=== PATIENT | female | born 1995 | race Caucasian/White ===

== ENCOUNTER 2017-11-23 07:17 | Inpatient (IN) | payer OTHER ==
[~2017-11-23] VITALS: Ht 157.5 cm; Wt 54.4 kg
== END 2017-11-25 13:21 | disposition home or self-care (01) | DRG 774 ==
LOC: LDR 07:17 → OB/GYN 19:26
PROC: 10E0XZZ Delivery of Products of Conception, External Approach (ICD-10-PCS; principal; 2017-11-23)
PROC: 0KQM0ZZ Repair Perineum Muscle, Open Approach (ICD-10-PCS; 2017-11-23)
PROC: 3E033VJ Introduction of Other Hormone into Peripheral Vein, Percutaneous Approach (ICD-10-PCS; 2017-11-23)
PROC: 4A1HXCZ Monitoring of Products of Conception, Cardiac Rate, External Approach (ICD-10-PCS; 2017-11-23)
DX: O70.1 Second degree perineal laceration during delivery (principal); O98.82 Other maternal infectious and parasitic diseases complicating childbirth; Z37.0 Single live birth; O69.81X0 Labor and delivery complicated by cord around neck, without compression, not applicable or unspecified; B95.1 Streptococcus, group B, as the cause of diseases classified elsewhere; Z3A.39 39 weeks gestation of pregnancy

== ENCOUNTER 2020-06-18 08:52 | Inpatient (IN) | payer OTHER ==
[~2020-06-18] VITALS: Ht 160 cm; Wt 55.3 kg
== END 2020-06-20 17:47 | disposition home or self-care (01) | DRG 807 ==
LOC: OB/GYN 08:52 → LDR 08:52 → OB/GYN 19:26
PROVIDERS: ADMIT Obstetrics & Gynecology; ATTEND Obstetrics & Gynecology
PROC: 10E0XZZ Delivery of Products of Conception, External Approach (ICD-10-PCS; principal; 2020-06-18)
PROC: 4A1HXFZ Monitoring of Products of Conception, Cardiac Rhythm, External Approach (ICD-10-PCS; 2020-06-18)
PROC: 3E0234Z Introduction of Serum, Toxoid and Vaccine into Muscle, Percutaneous Approach (ICD-10-PCS; 2020-06-20)
DX: O36.0930 Maternal care for other rhesus isoimmunization, third trimester, not applicable or unspecified (principal); Z37.0 Single live birth; Z3A.39 39 weeks gestation of pregnancy; Z20.828 Contact with and (suspected) exposure to other viral communicable diseases

== ENCOUNTER 2025-04-24 08:20 | Inpatient (IN) | payer OTHER ==
[~2025-04-24] VITALS: Ht 157.5 cm; Wt 59.0 kg
[2025-04-24] VITALS (9 sets, daily range): BP systolic 98–115; BP diastolic 55–73
[2025-04-24] MEDS ORDERED: AMPICILLIN SODIUM 2,000 MG VIAL ONE (10:21)
[2025-04-24] MEDS ORDERED: OXYTOCIN 20 UNITS/500ML RL PIGGYBAG IV SCH (11:15)
[2025-04-24] MEDS ORDERED: PRENATAL TABLE1 EAC1 PO (11:17)
[2025-04-24] MEDS ORDERED: RINGERS SOLUTION,LACTATED 1,000 ML IV SCH (11:30)
[2025-04-24] MEDS ORDERED: AMPICILLIN SODIUM 2,000 MG VIAL IV ONE (11:30)
[2025-04-24 12:21] LABS: BASO % 0.3 % (0.1-1.2); EOS # 0.06 (0.04-0.54); EOS % 0.6 % (0.7-7.0); LYMPH # 1.87 (1.18-3.74); LYMPH % 19.7 % (19.3-53.1); MEAN PLATELET VOLUME 12.90 fl (9.4-12.4); MONO # 0.71 (0.24-0.82); MONO % 7.5 % (4.7-12.5); NEUT # 6.72 (1.56-6.13); NEUT % 70.8 % (34.0-71.1); RED CELL DISTRIBUTION WIDTH 12.9 % (11.6-14.4)
[2025-04-24 13:00] LABS: URINE APPEARANCE Clear; URINE BILIRRUBIN Negative (NEGATIVE); URINE BLOOD Negative; URINE COLOR Yellow; URINE GLUCOSE Negative (NEGATIVE); URINE KETONE 15 (NEGATIVE); URINE LEUKOCYTE Negative; URINE NITRATE Negative; URINE PROTEIN Negative (NEGATIVE); URINE UROBILINOGEN 1.0 E.U./dl
[2025-04-24 13:03] LABS: URINE BACTERIA 85.1 uL (0.0-1933); URINE EPITHELIAL CELLS 2.7 uL (0.0-38.8); URINE RBC 2.4 uL (0.0-20.8); URINE WBC 6.0 uL (0.0-23.2)
[2025-04-24 13:25] LABS: URINE CAST 0.00 uL (0.0-1.40)
[2025-04-24 14:38] LABS: INR < 0.93
[2025-04-24] MEDS ORDERED: AMPICILLIN SODIUM 1,000 MG VIAL IV SCH (16:00)
[2025-04-24] MEDS ORDERED: MORPHINE SULFATE 4 MG/ML CARTRIDGE IV STA ×2 (17:00→21:17)
[2025-04-24] MEDS ORDERED: CHLORHEXIDINE GLUCONATE 120 ML BOTTLE TOP ONE (19:01)
[2025-04-24] MEDS ORDERED: OXYTOCIN 20 UNITS/1000ML RL PIGGYBAG IV ONE (19:01)
[2025-04-24] MEDS ORDERED: ERYTHROMYCIN BASE OPHT 1GM EACH TUBE OP ONE ×2 (19:01→20:30)
[2025-04-24] MEDS ORDERED: LIDOCAINE HCL 1% 10ML VIAL ONE (19:02)
[2025-04-24] MEDS ORDERED: ACETAMINOPHEN 500 MG GEL..CAP PO PRN (19:30)
[2025-04-24] MEDS ORDERED: CHLORHEXIDINE GLUCONATE 120 ML BOTTLE TOP SCH (19:30)
[2025-04-24] MEDS ORDERED: OXYTOCIN 1,000 ML IV SCH (19:30)
[2025-04-25 01:40] LABS: BASO % 0.2 % (0.1-1.2); EOS # 0.00 (0.04-0.54); EOS % 0.0 % (0.7-7.0); LYMPH # 1.12 (1.18-3.74); LYMPH % 7.7 % (19.3-53.1); MEAN PLATELET VOLUME 12.50 fl (9.4-12.4); MONO # 0.84 (0.24-0.82); MONO % 5.8 % (4.7-12.5); NEUT # 12.49 (1.56-6.13); NEUT % 85.8 % (34.0-71.1); RED CELL DISTRIBUTION WIDTH 12.4 % (11.6-14.4)
[2025-04-25 01:53] VITALS: BP 107/67
[2025-04-25 08:00] VITALS: BP 101/64
[2025-04-25] MEDS ORDERED: PNV,CALCIUM 72/IRON/FOLIC ACID 1 TAB TABLET PO SCH (09:00)
[2025-04-25] MEDS ORDERED: FF) RHO(D) IMMUNE GLOBULIN (POM) IM NR (13:30)
[2025-04-25 16:44] VITALS: BP 96/61
[2025-04-26 00:36] VITALS: BP 105/71
[2025-04-26 08:00] VITALS: BP 93/59
== END 2025-04-26 14:19 | disposition home or self-care (01) | DRG 807 ==
LOC: OB/GYN 08:20 → LDR 08:20 → OB/GYN 20:04
PROVIDERS: ADMIT Obstetrics & Gynecology; ATTEND Obstetrics & Gynecology
PROC: 10E0XZZ Delivery of Products of Conception, External Approach (ICD-10-PCS; principal; 2025-04-24)
PROC: 4A1HXCZ Monitoring of Products of Conception, Cardiac Rate, External Approach (ICD-10-PCS; 2025-04-24)
DX: O80 Encounter for full-term uncomplicated delivery (principal); Z37.0 Single live birth; Z3A.39 39 weeks gestation of pregnancy